=== PATIENT | male | born 1990 | race Caucasian/White ===

== ENCOUNTER 2024-03-07 17:03 | Emergency (ER) | payer BC, SELFPAY ==
[2024-03-07 17:05] VITALS: BP 144/105; PULSE 105; RESP 20; TEMP 36.8; O2SAT 99; BMI 29.0
--- NOTE | 2024-03-07 17:30 | XR_ITS ---
PROCEDURE INFORMATION: Exam: XR Right Hand Exam date and time: 03/07/2024 5:28 PM Age: 34 years old Clinical indication: Injury or trauma; Other: Smashed; Blunt trauma (contusions or hematomas); Right; Ring finger; Additional info: Trauma distal dorsal long and ring finger TECHNIQUE: Imaging protocol: Radiologic exam of the right hand. Views: 3 or more views. COMPARISON: No relevant prior studies available. FINDINGS: Bones/joints: Osseous alignment is normal. No acute fracture. No significant arthritic change. Soft tissues: Normal. IMPRESSION: Negative right hand
--- NOTE | 2024-03-07 17:56 | ED_ITS ---
<Statement entered by Torres Johnson MD - 03/07/24 22:48> I was consulted by the CHRIS, and we discussed the complexity of the problems being addressed. I approved the treatment and management plan for this patient's care in the emergency department, thus performing a substantive portion of the medical decision making. Torres Johnson MD Discharge Plan Disposition Patient Disposition: Home, Self-Care Prescriptions Prescriptions: New cephalexin 500 mg capsule 500 mg PO BID 5 Days Qty: 10 0RF Referrals Follow up/Referrals: Mirza Morfin DO [Staff Physician] - See instructions Provider,Referral, [Primary Care Provider] - See instructions Activity Restrictions/Add. Instructions Additional Instructions/Restrictions: At this time it was felt you are safe to be discharged home. If new or worsening symptoms please do not hesitate to return the emergency department. Please leave your splint on over top of your nail and take your antibiotics as prescribed. Tomorrow call and schedule appointment with Dr. Morfin as soon as you are able. Clinical Impressions Clinical Impression: Nailbed laceration, finger, Avulsion of nail Discharge ED Provider: Torres Johnson General Adult HPI <Torres Johnson MD - Last Filed: 03/07/24 22:32> General Chief complaint: Extremity Injury, Upper Stated complaint: AO 03-07-24 cut on right hand Time Seen by Provider: 03/07/24 17:10 History of Present Illness HPI narrative: Patient is a 34-year-old male presents emergency department for evaluation of right hand trauma. Patient was working on a tree stand when he damaged his distal right middle finger and right ring finger prior to arrival. Tetanus is not up-to-date. He presents here for continued evaluation. Patient is right-handed. Related Data Previous Rx's Medication Instructions Recorded cephalexin 500 mg capsule 500 mg PO BID laceration 5 days 03/07/24 #10 caps Allergies Allergy/AdvReac Type Severity Reaction Status Date / Time No Known Allergies Allergy Verified 03/07/24 19:10 PFSH <Torres Johnson MD - Last Filed: 03/07/24 22:32> PFS Disclaimer: The information contained in this section may have been updated after the patient was seen, as this information can be updated by other users. Social History Smoking Status: Current every day smoker alcohol intake: current alcohol intake frequency: holidays/special occasions only current occupational status: employed Travel in the last 8 weeks: None <Torres Johnson MD - Last Filed: 03/07/24 22:32> ROS Obtained: Yes Systems reviewed as appropriate & no additional complaints except as documented Physical Exam <Torres Johnson MD - Last Filed: 03/07/24 22:32> General General appearance: alert and other (Appearing in pain) Head Head exam: atraumatic and normocephalic Eye Eye exam: Present PERRL ENT ENT exam: Present mucous membranes moist Neck Neck exam: Present normal inspection Chest Chest inspection: Present normal inspection and symmetric chest wall rise Respiratory Respiratory exam: Absent respiratory distress Cardiovascular Cardiovascular exam: Present regular rate and normal rhythm Abdominal Exam Abdominal exam: Present soft Extremities Exam Extremities exam: Present other (Trauma with partially avulsed nail of the right middle finger, bruising of the distal right ring finger. Significant tenderness of the right middle finger. No trauma over the MCP, CMC, right forearm. Palpable right radial pulse.) Neurological Exam Neurological exam: Present alert Psychiatric Psychiatric exam: Present normal affect Skin Skin exam: Present warm and dry Medical Decision Making <Torres Johnson MD - Last Filed: 03/07/24 22:32> Saleem Inquiry Pt receiving controlled substance: No Vital Signs: 03/07/24 17:05 03/07/24 18:00 03/07/24 19:58 Temperature 98.3 F 98.4 F Temperature Source Oral Oral Pulse Rate 86 87 Pulse Rate [Left] 105 H Respiratory Rate 20 16 Blood Pressure 145/87 H 125/74 Blood Pressure [Right Arm] 144/105 H Blood Pressure Mean [Right Arm] 118 02 Sat by Pulse Oximetry 99 97 Oxygen Delivery Method Room Air Room Air Room Air Orders (Tests/Meds): ED MEDICATIONS Discontinued Medications Generic Name Dose Route Start Last Admin Trade Name Freq PRN Reason Stop Dose Admin Cephalexin HCl 500 mg 03/07/24 20:01 03/07/24 20:07 Cephalexin 500mg Capsule PO 03/07/24 20:02 500 mg ONCE ONE Administration Tetanus/Reduced Diphtheria/Acell Pertussis 0.5 ml 03/07/24 17:30 03/07/24 19:19 Tet/Diphth/Pert-Adult 0.5ml Syringe IM 03/07/24 17:31 0.5 ml .ONCE ONE Administration ORDERS Category Date Time Status Hand XR right minimum 3 views [XR hand RT min 3V] Stat Exams 03/07/24 17:30 Completed Medical Decision Narrative: In summary patient is a 34-year-old male past medical history described above presents emergency department for evaluation of traumatic hand injury. Patient is hemodynamically stable upon arrival. Based on history and physical exam differential includes tuft fracture, nail avulsion, nailbed laceration, among others. Limited workup will be conducted with plain film of the hand. Initial inventions include digital block. Tdap will be updated. X-ray informally interpreted by me, no acute significantly displaced fracture. Formal read shows negative right hand. Wound was repaired by CHRIS with splinting with foil under my direction. Patient will be discharged with a course of Keflex was given first dose here and will follow-up with Dr. Morfin on an outpatient basis. <BRYANT Banerjee - Last Filed: 03/07/24 22:40> Vital Signs: 03/07/24 17:05 03/07/24 18:00 03/07/24 19:58 Temperature 98.3 F 98.4 F Temperature Source Oral Oral Pulse Rate 86 87 Pulse Rate [Left] 105 H Respiratory Rate 20 16 Blood Pressure 145/87 H 125/74 Blood Pressure [Right Arm] 144/105 H Blood Pressure Mean [Right Arm] 118 02 Sat by Pulse Oximetry 99 97 Oxygen Delivery Method Room Air Room Air Room Air Orders (Tests/Meds): ED MEDICATIONS Discontinued Medications Generic Name Dose Route Start Last Admin Trade Name Freq PRN Reason Stop Dose Admin Cephalexin HCl 500 mg 03/07/24 20:01 03/07/24 20:07 Cephalexin 500mg Capsule PO 03/07/24 20:02 500 mg ONCE ONE Administration Tetanus/Reduced Diphtheria/Acell Pertussis 0.5 ml 03/07/24 17:30 03/07/24 19:19 Tet/Diphth/Pert-Adult 0.5ml Syringe IM 03/07/24 17:31 0.5 ml .ONCE ONE Administration ORDERS Category Date Time Status Hand XR right minimum 3 views [XR hand RT min 3V] Stat Exams 03/07/24 17:30 Completed Medical Decision Narrative: In summary patient is a 34-year-old male past medical history described above presents emergency department for evaluation of traumatic hand injury. Patient is hemodynamically stable upon arrival. Based on history and physical exam differential includes tuft fracture, nail avulsion, nailbed laceration, among others. Limited workup will be conducted with plain film of the hand. Initial inventions include digital block. Tdap will be updated. X-ray informally interpreted by me, no acute significantly displaced fracture. Formal read shows negative right hand. Wound was repaired by CHRIS with splinting with foil under my direction. Patient will be discharged with a course of Keflex was given first dose here and will follow-up with Dr. Morfin on an outpatient basis. Procedure note: Nailbed avulsion repair performed by Reji Betts Right ring finger given a digital block with lidocaine. After adequate anesthesia exam was undertaken after irrigation with 500 cc of water and Hibiclens. Nail is fractured at the at the germinal matrix and thus nonviable. Nail removed and metal splint placed in the onychial recess to prevent skin closure and promote nail growth. Finger splinted and patient referred to Dr. Morfin. Patient is neurovascularly intact after procedure. Critical Care <BRYANT Banerjee - Last Filed: 03/07/24 22:40> Critical Care Time Critical Care Time: No
[2024-03-07 18:00] VITALS: BP 145/87; PULSE 86; O2SAT 97
[2024-03-07] MEDS: TET/DIPHTH/PERT-ADULT 0.5ML SYRINGE 0.5 ML IM (19:19)
[2024-03-07 19:58] VITALS: BP 125/74; PULSE 87; RESP 16; TEMP 36.9; O2SAT 97
[2024-03-07] MEDS: cephALEXin 500MG CAPSULE 500 MG PO (20:07)
== END 2024-03-07 20:08 | disposition home or self-care (01) ==
PROVIDERS: Emergency Provider Emergency Medicine
DX: S61.302A Unspecified open wound of right middle finger with damage to nail, initial encounter (principal); S60.041A Contusion of right ring finger without damage to nail, initial encounter; W26.8XXA Contact with other sharp object(s), not elsewhere classified, initial encounter; Z23 Encounter for immunization
CPT/HCPCS: 11750; 73130; 90471; 90715; 99283